=== PATIENT | male | born 1950 | race African-American/Black ===

== ENCOUNTER 2016-09-12 18:55 | Emergency (ER) | payer OTHER ==
[~2016-09-12] VITALS: Ht 157.5 cm; Wt 50.0 kg
[2016-09-12 19:47] VITALS: BP 156/101
[2016-09-12 19:51] LABS: HEMATOCRIT 40.3 % (41-53); HEMOGLOBIN 12.8 g/dL (13.5-17.5); MEAN CORPUSCULAR HEMOGLOBIN 28.8 pg (26.0-34.0); MEAN CORPUSCULAR HGB CONC 31.7 G/dL (31.0-37.0); MEAN CORPUSCULAR VOLUME 91 fL (80-100); PLATELET COUNT (AUTO) 184 K/uL (150-450); RED BLOOD CELL COUNT(AUTO) 4.43 MIL/uL (4.50-5.90); RED CELL DISTRIBUTION WIDTH 18.6 % (11.5-14.5); WHITE BLOOD COUNT (AUTO) 5.4 K/uL (4.5-11.0)
[2016-09-12] MEDS ORDERED: PERTUSS(ACELL),DIPH,TET VAC/PF 0.5 ML VIAL IM ONE (20:00)
[2016-09-12] MEDS ORDERED: LIDOCAINE HCL BUFFERED 1% 20 ML VIAL INJ ONE (20:00)
[2016-09-12] MEDS ORDERED: BACITRACIN 0.9 GM PACKET OINTMENT TP ONE (20:00)
[2016-09-12 20:04] LABS: ANION GAP 12 mmol/L (8-16); CALCIUM, TOTAL 8.3 mg/dL (8.8-10.5); CARBON DIOXIDE 28 mmol/L (22-29); CHLORIDE 103 mmol/L (98-107); CREATININE 0.87 mg/dL (0.60-1.30); GLOMERULAR FILTR. RATE CALC > 60 mL/min (>60); SODIUM SERUM 143 mmol/L (136-145); UREA NITROGEN, BLOOD 7 mg/dL (7-18)
[2016-09-12 20:10] LABS: ALANINE AMINOTRANSFERASE 99 U/L (12-78); ALBUMIN 3.9 g/dL (3.4-5.0); ASPARTATE AMINOTRANSFERASE 120 U/L (15-37); BILIRUBIN,TOTAL 0.4 mg/dL (0.1-1.0); TOTAL PROTEIN, SERUM 8.4 g/dL (6.4-8.2)
[2016-09-12 20:57] LABS: BAND NEUTROPHILS % (MANUAL) 5 % (1-5); LYMPHOCYTES % (MANUAL) 40 % (22-44); REACTIVE LYMPHOCYTES 1 % (0-0); TOTAL CELLS COUNTED 100
[2016-09-12 21:02] LABS: RBC MORPHOLOGY COMMENT ABNORMAL RBC MORPH
== END 2016-09-12 22:32 | disposition home or self-care (01) ==
LOC: EMS 18:57
DX: S01.81XA Laceration without foreign body of other part of head, initial encounter (principal); K70.30 Alcoholic cirrhosis of liver without ascites; F10.129 Alcohol abuse with intoxication, unspecified; J44.9 Chronic obstructive pulmonary disease, unspecified; F17.210 Nicotine dependence, cigarettes, uncomplicated; Y90.8 Blood alcohol level of 240 mg/100 ml or more; W01.198A Fall on same level from slipping, tripping and stumbling with subsequent striking against other object, initial encounter; Y93.89 Activity, other specified; Y92.89 Other specified places as the place of occurrence of the external cause; Y99.8 Other external cause status
CPT/HCPCS: 12013; 36415; 70450; 70486; 80053; 85025; 90471; 90715; 99285; 99406; G0480; J3490

== ENCOUNTER 2017-07-18 16:31 | Emergency (ER) | payer MEDICARE, OTHER ==
[~2017-07-18] VITALS: Ht 167.6 cm; Wt 59.1 kg
[2017-07-18] MEDS ORDERED: ALBU8HFA IH (16:39)
[2017-07-18 18:41] VITALS: BP 129/71
== END 2017-07-18 18:45 | disposition home or self-care (01) ==
LOC: EMS 16:36
DX: R19.7 Diarrhea, unspecified (principal); R05 Cough; J44.9 Chronic obstructive pulmonary disease, unspecified; J45.909 Unspecified asthma, uncomplicated; F17.210 Nicotine dependence, cigarettes, uncomplicated; Z59.0 Homelessness
CPT/HCPCS: 99283

== ENCOUNTER 2018-04-13 16:48 | Emergency (ER) | payer MEDICARE, OTHER ==
[~2018-04-13] VITALS: Ht 162.6 cm; Wt 57.3 kg
[~2018-04-13 16:48] MED LIST: ALBU8HFA IH
[2018-04-13 19:06] VITALS: BP 123/88
== END 2018-04-13 20:30 | disposition home or self-care (01) ==
LOC: EMS 16:49
DX: J40 Bronchitis, not specified as acute or chronic (principal); R05 Cough; J45.909 Unspecified asthma, uncomplicated; J44.9 Chronic obstructive pulmonary disease, unspecified; F17.210 Nicotine dependence, cigarettes, uncomplicated; Z59.0 Homelessness
CPT/HCPCS: 99284; 99406

== ENCOUNTER 2020-09-17 11:10 | Inpatient (IN) | payer MEDICARE, OTHER ==
[~2020-09-17] VITALS: Ht 177.8 cm; Wt 52.2 kg
[2020-09-17] MEDS ORDERED: MAGNESIUM SULFATE 2 GM, MVI, ADULT NO.1 WITH VIT K 10 ML, THIAMINE 100 MG, FOLIC ACID 1... IV ONE ×5 (11:30)
[2020-09-17] MEDS ORDERED: ETOMIDATE 2 MG/ML 10 ML VIAL IVP ONE (11:30)
[2020-09-17] MEDS ORDERED: PROPOFOL 1000 MG/ISO-OSM 100 ML IV PRN (11:30)
[2020-09-17] MEDS ORDERED: NALOXONE HCL 1 MG/ML 2 ML SYG IVP ONE (11:30)
[2020-09-17] MEDS ORDERED: ROCURONIUM BROMIDE 10 MG/ML 5 ML VIAL IVP ONE (11:30)
[2020-09-17] MEDS ORDERED: MIDAZOLAM HCL 2 MG/2 ML VIAL IVP ONE (11:45)
[2020-09-17 12:16] LABS: BASOPHILS % (AUTO) 0.7 % (0.0-2.0); EOSINOPHILS % (AUTO) 0.2 % (1.0-6.0); HEMATOCRIT 42.8 % (41-53); HEMOGLOBIN 13.8 g/dL (13.5-17.5); LYMPHOCYTES # (AUTO) 2.9 K/uL (1.0-4.8); MEAN CORPUSCULAR HEMOGLOBIN 30.2 pg (26.0-34.0); MEAN CORPUSCULAR HGB CONC 32.3 G/dL (31.0-37.0); MEAN CORPUSCULAR VOLUME 94 fL (80-100); MONOCYTES # (AUTO) 0.5 K/uL (0.1-1.0); MONOCYTES % (AUTO) 3.5 % (2.0-9.0); NEUTROPHILS # (AUTO) 10.2 K/uL (1.8-7.7); NEUTROPHILS % (AUTO) 74.6 % (40.0-70.0); PLATELET COUNT (AUTO) 157 K/uL (150-450); RED BLOOD CELL COUNT(AUTO) 4.57 MIL/uL (4.50-5.90); RED CELL DISTRIBUTION WIDTH 16.3 % (11.5-14.5)
[2020-09-17 12:29] LABS: PROTHROMBIN TIME 10.4 SEC (9.4-11.6)
[2020-09-17 12:31] LABS: ANION GAP 27 mmol/L (8-16); CALCIUM, TOTAL 9.5 mg/dL (8.8-10.5); CARBON DIOXIDE 16 mmol/L (22-29); CHLORIDE 101 mmol/L (98-107); CREATININE 1.07 mg/dL (0.60-1.30); GLOMERULAR FILTR. RATE CALC > 60 mL/min (>60); GLUCOSE,RANDOM 156 mg/dL (70-110); POTASSIUM 3.8 mmol/L (3.5-5.1); SODIUM SERUM 144 mmol/L (136-145); UREA NITROGEN, BLOOD 11 mg/dL (7-18)
[2020-09-17 12:38] LABS: APPEARANCE,URINE CLEAR (CLEAR); BILIRUBIN,URINE NEGATIVE (NEGATIVE); GLUCOSE, URINE (UA) NEGATIVE (NEGATIVE); KETONES,URINE NEGATIVE (NEGATIVE); LEUKOCYTE ESTERASE ,URINE NEGATIVE (NEGATIVE); NITRATE,URINE NEGATIVE (NEGATIVE); OCCULT BLOOD,URINE LARGE (NEGATIVE); PROTEIN,URINE SEE CONFIRM (NEGATIVE); UROBILINOGEN,URINE 0.2 mg/dL (<=1.0)
[2020-09-17 12:41] LABS: AMMONIA 28 umol/L (11-32)
[2020-09-17 12:43] LABS: AMPHET/METH SCREEN,URINE NEGATIVE (NEGATIVE); BARBITURATE SCREEN, URINE NEGATIVE (NEGATIVE); BENZODIAZEPINES SCREEN,URINE NEGATIVE (NEGATIVE); CANNABINOID SCREEN,URINE NEGATIVE (NEGATIVE); COCAINE SCREEN,URINE NEGATIVE (NEGATIVE); METHADONE SCREEN, URINE NEGATIVE (NEGATIVE); OPIATE SCREEN,URINE NEGATIVE (NEGATIVE)
[2020-09-17 12:44] LABS: TROPONIN I < 0.02 ng/mL (0.00-0.05)
[2020-09-17 12:45] LABS: LACTIC ACID 13.5 mmol/L (0.4-2.0)
[2020-09-17 12:47] LABS: PHENCYCLIDINE SCREEN,URINE POSITIVE (NEGATIVE)
[2020-09-17 12:56] LABS: ALANINE AMINOTRANSFERASE 47 U/L (12-78); ALBUMIN 4.6 g/dL (3.4-5.0); ALKALINE PHOSPHATASE 80 U/L (46-116); ASPARTATE AMINOTRANSFERASE 53 U/L (15-37); BILIRUBIN,TOTAL 0.3 mg/dL (0.1-1.0); LIPASE 102 U/L (73-393)
[2020-09-17 13:00] LABS: CREATINE KINASE, TOTAL ONLY 1274 U/L (39-308)
[2020-09-17 13:00] LABS: SULFOSALICYLIC ACID,URINE 3+ (Negative)
[2020-09-17 13:01] LABS: BACTERIA,URINE None Seen /HPF (None Seen); WBC,URINE None Seen /HPF (0-5)
[2020-09-17 13:02] LABS: AMORPHOUS SEDIMENT,UR Moderate /LPF (None Seen); HYALINE CASTS, URINE 0-2 /LPF (None Seen)
[2020-09-17 13:04] LABS: ABG A-A DIFF O2 190.1 mmHg (10-20.0); ABG BASE EXCESS -3.1 mmol/L (-2.0-3.0); ABG CARBOXYHEMOGLOBIN 2.2 % (0.0-1.5); ABG HCO3 21.5 mmol/L (22.0-26.0); ABG METHEMOGLOBIN 0.4 % (0.0-1.5); ABG OXYGEN CONTENT 21.2 mL/dL (15.0-23.0); ABG OXYGEN SATURATION 99.7 % (95.0-98.0); ABG OXYHEMOGLOBIN 97.1 % (94.0-100.0); ABG PCO2 51 mmHg (35-45); ABG PH 7.282 (7.35-7.450); ABG TOTAL HEMOGLOBIN 14.6 G/dL (12.0-18.0); PO2, ARTERIAL BG 471.8 mmHg (79.0-87.0); SOURCE, BLOOD GAS ARTERIAL; TEMPERATURE, FAHRENHEIT, BG 98.6 FAHREN (96.0-98.6)
[2020-09-17 13:04] LABS: B-TYPE NATRIURETIC PEPTIDE 14 pg/mL (0-100)
[2020-09-17 13:07] LABS: O2 DEVICE,BLOOD GAS VENTILATOR (ROOM AIR); SITE, BLOOD GAS LFT RADIAL; VT, ABG 450 ml
[2020-09-17 13:08] LABS: PEEP,BG 5 cm H2O
[2020-09-17 13:14] LABS: ACETAMINOPHEN < 2 mcg/mL (10-30)
[2020-09-17 13:21] LABS: SALICYLATE 4.8 mg/dL (2.8-20.0)
[2020-09-17] MEDS ORDERED: ONDANSETRON HCL 4 MG/2 ML VIAL IVP PRN (13:30)
[2020-09-17] MEDS ORDERED: 0.9% SODIUM CHLORIDE 10 ML SYRINGE IVP PRN (13:30)
[2020-09-17 13:52] LABS: COVID AG,FIA SOURCE NASOPHARYNGEAL
[2020-09-17] MEDS ORDERED: FentaNYL CIT 1000MCG/D5%-WATER 100 ML IV PRN (14:00)
[2020-09-17] MEDS ORDERED: SODIUM CHLORIDE 0.9% 1,000 ML IV ONE (15:30)
[2020-09-17 16:00] VITALS: BP 115/84
[2020-09-17 18:00] VITALS: BP 105/78
[2020-09-17 20:00] VITALS: BP 90/66
[2020-09-17] MEDS: FentaNYL CIT 1000MCG/D5%-WATER 100 ML IV PRN (22:01)
[2020-09-17] MEDS: PROPOFOL 1000 MG/ISO-OSM 100 ML IV PRN (22:01)
[2020-09-17] MEDS: MIDAZOLAM HCL 100 MG in SODIUM CHLORIDE 0.9% 180 ML IV PRN (22:02)
[2020-09-18] VITALS: BP 109/39
[2020-09-18] MEDS ORDERED: SODIUM CHLORIDE 0.9% 250 ML IV ONE (01:06)
[2020-09-18 04:00] VITALS: BP 90/64
[2020-09-18 08:00] VITALS: BP 75/54
[2020-09-18] MEDS ORDERED: RINGERS SOLUTION,LACTATED 1,000 ML IV ONE ×2 (08:45→13:15)
[2020-09-18] MEDS ORDERED: NOREPINEPHRINE 4 MG/D5%-WATER 250 ML IV PRN (08:45)
[2020-09-18] MEDS: HEPARIN SODIUM,PORCINE 5,000 UNITS/ML VIAL SQ SCH ×3 (08:48→23:14)
[2020-09-18] MEDS: RINGERS SOLUTION,LACTATED 1,000 ML IV SCH (08:49)
[2020-09-18] MEDS: DOCUSATE SODIUM 100 MG/10 ML LIQUID UDCUP PO SCH ×2 (09:33→19:52)
[2020-09-18 10:38] LABS: BASOPHILS % (AUTO) 0.9 % (0.0-2.0); EOSINOPHILS % (AUTO) 0.5 % (1.0-6.0); HEMATOCRIT 37.6 % (41-53); HEMOGLOBIN 11.7 g/dL (13.5-17.5); LYMPHOCYTES # (AUTO) 1.5 K/uL (1.0-4.8); LYMPHOCYTES % (AUTO) 13.4 % (22.0-44.0); MEAN CORPUSCULAR HEMOGLOBIN 29.8 pg (26.0-34.0); MEAN CORPUSCULAR HGB CONC 31.1 G/dL (31.0-37.0); MEAN CORPUSCULAR VOLUME 96 fL (80-100); MONOCYTES # (AUTO) 0.6 K/uL (0.1-1.0); MONOCYTES % (AUTO) 5.5 % (2.0-9.0); NEUTROPHILS # (AUTO) 8.9 K/uL (1.8-7.7); NEUTROPHILS % (AUTO) 79.7 % (40.0-70.0); PLATELET COUNT (AUTO) 117 K/uL (150-450); RED BLOOD CELL COUNT(AUTO) 3.93 MIL/uL (4.50-5.90); RED CELL DISTRIBUTION WIDTH 16.6 % (11.5-14.5)
[2020-09-18 10:48] LABS: ANION GAP 11 mmol/L (8-16); CALCIUM, TOTAL 8.4 mg/dL (8.8-10.5); CARBON DIOXIDE 25 mmol/L (22-29); CHLORIDE 110 mmol/L (98-107); GLOMERULAR FILTR. RATE CALC > 60 mL/min (>60); GLUCOSE,RANDOM 77 mg/dL (70-110); PHOSPHORUS 3.7 mg/dL (2.5-4.9); POTASSIUM 4.1 mmol/L (3.5-5.1); SODIUM SERUM 146 mmol/L (136-145); UREA NITROGEN, BLOOD 21 mg/dL (7-18)
[2020-09-18 12:00] VITALS: BP 81/60
[2020-09-18] MEDS: PROPOFOL 1000 MG/ISO-OSM 100 ML IV PRN ×2 (12:00→21:39)
[2020-09-18] MEDS: FentaNYL CIT 1000MCG/D5%-WATER 100 ML IV PRN (14:04)
[2020-09-18 14:27] LABS: CREATINE KINASE, TOTAL ONLY 9632 U/L (39-308)
[2020-09-18] MEDS: 1: MAGNESIUM SULFATE 2 GM, MVI, ADULT NO.1 WITH VIT K 10 ML, THIAMINE 100 MG, FOLIC ACID IV SCH ×10 (15:13→22:39)
[2020-09-18 16:00] VITALS: BP 110/88
[2020-09-18 20:00] VITALS: BP 82/60
[2020-09-18] MEDS ORDERED: SODIUM CHLORIDE 0.9% 1,000 ML ONE (21:30)
[2020-09-19] VITALS: BP 103/77
[2020-09-19] MEDS: FentaNYL CIT 1000MCG/D5%-WATER 100 ML IV PRN ×2 (02:40→18:18)
[2020-09-19] MEDS: MIDAZOLAM HCL 100 MG in SODIUM CHLORIDE 0.9% 180 ML IV PRN (02:40)
[2020-09-19 04:00] VITALS: BP 111/69
[2020-09-19] MEDS: RINGERS SOLUTION,LACTATED 1,000 ML IV SCH (04:00)
[2020-09-19] MEDS: 1: MAGNESIUM SULFATE 2 GM, MVI, ADULT NO.1 WITH VIT K 10 ML, THIAMINE 100 MG, FOLIC ACID IV SCH ×15 (07:47→23:16)
[2020-09-19] MEDS: HEPARIN SODIUM,PORCINE 5,000 UNITS/ML VIAL SQ SCH ×2 (07:48→16:04)
[2020-09-19] MEDS: DOCUSATE SODIUM 100 MG/10 ML LIQUID UDCUP PO SCH ×2 (07:48→20:19)
[2020-09-19] MEDS: PROPOFOL 1000 MG/ISO-OSM 100 ML IV PRN ×2 (07:48→18:18)
[2020-09-19 08:00] VITALS: BP 116/77
[2020-09-19 08:31] LABS: BASOPHILS % (AUTO) 0.7 % (0.0-2.0); EOSINOPHILS % (AUTO) 1.6 % (1.0-6.0); HEMOGLOBIN 10.6 g/dL (13.5-17.5); LYMPHOCYTES # (AUTO) 0.9 K/uL (1.0-4.8); LYMPHOCYTES % (AUTO) 10.8 % (22.0-44.0); MEAN CORPUSCULAR HEMOGLOBIN 30.1 pg (26.0-34.0); MEAN CORPUSCULAR VOLUME 94 fL (80-100); MONOCYTES # (AUTO) 0.8 K/uL (0.1-1.0); MONOCYTES % (AUTO) 9.4 % (2.0-9.0); NEUTROPHILS # (AUTO) 6.7 K/uL (1.8-7.7); NEUTROPHILS % (AUTO) 77.5 % (40.0-70.0); PLATELET COUNT (AUTO) 105 K/uL (150-450); RED CELL DISTRIBUTION WIDTH 16.2 % (11.5-14.5)
[2020-09-19 09:12] LABS: ALANINE AMINOTRANSFERASE 44 U/L (12-78); ALBUMIN 2.7 g/dL (3.4-5.0); ALKALINE PHOSPHATASE 40 U/L (46-116); ANION GAP 9 mmol/L (8-16); ASPARTATE AMINOTRANSFERASE 148 U/L (15-37); BILIRUBIN,TOTAL 0.3 mg/dL (0.1-1.0); CALCIUM, TOTAL 7.6 mg/dL (8.8-10.5); CARBON DIOXIDE 24 mmol/L (22-29); CHLORIDE 111 mmol/L (98-107); GLOMERULAR FILTR. RATE CALC > 60 mL/min (>60); GLUCOSE,RANDOM 66 mg/dL (70-110); POTASSIUM 3.7 mmol/L (3.5-5.1); SODIUM SERUM 144 mmol/L (136-145); TOTAL PROTEIN, SERUM 6.1 g/dL (6.4-8.2); UREA NITROGEN, BLOOD 16 mg/dL (7-18)
[2020-09-19 09:13] LABS: CREATINE KINASE, TOTAL ONLY 6528 U/L (39-308)
[2020-09-19 12:00] VITALS: BP 111/69
[2020-09-19 16:00] VITALS: BP 99/66
[2020-09-19] MEDS ORDERED: DEXMEDETOMIDINE HCL 200 MCG in SODIUM CHLORIDE 0.9% 48 ML IV PRN (17:15)
[2020-09-19 20:00] VITALS: BP 139/87
[2020-09-20] VITALS: BP 119/85
[2020-09-20] MEDS: HEPARIN SODIUM,PORCINE 5,000 UNITS/ML VIAL SQ SCH ×4 (02:01→23:51)
[2020-09-20 04:00] VITALS: BP 141/91
[2020-09-20 05:53] LABS: BASOPHILS % (AUTO) 1.4 % (0.0-2.0); EOSINOPHILS % (AUTO) 2.6 % (1.0-6.0); HEMATOCRIT 36.4 % (41-53); HEMOGLOBIN 11.4 g/dL (13.5-17.5); LYMPHOCYTES # (AUTO) 0.9 K/uL (1.0-4.8); LYMPHOCYTES % (AUTO) 13.6 % (22.0-44.0); MEAN CORPUSCULAR HEMOGLOBIN 29.9 pg (26.0-34.0); MEAN CORPUSCULAR HGB CONC 31.4 G/dL (31.0-37.0); MEAN CORPUSCULAR VOLUME 95 fL (80-100); MONOCYTES # (AUTO) 0.6 K/uL (0.1-1.0); MONOCYTES % (AUTO) 8.8 % (2.0-9.0); NEUTROPHILS # (AUTO) 5.2 K/uL (1.8-7.7); NEUTROPHILS % (AUTO) 73.6 % (40.0-70.0); PLATELET COUNT (AUTO) 114 K/uL (150-450); RED BLOOD CELL COUNT(AUTO) 3.83 MIL/uL (4.50-5.90); RED CELL DISTRIBUTION WIDTH 16.1 % (11.5-14.5)
[2020-09-20 06:13] LABS: ALANINE AMINOTRANSFERASE 48 U/L (12-78); ALBUMIN 2.6 g/dL (3.4-5.0); ALKALINE PHOSPHATASE 40 U/L (46-116); ANION GAP 14 mmol/L (8-16); ASPARTATE AMINOTRANSFERASE 158 U/L (15-37); BILIRUBIN,TOTAL 0.5 mg/dL (0.1-1.0); CARBON DIOXIDE 18 mmol/L (22-29); CHLORIDE 111 mmol/L (98-107); CREATININE 0.88 mg/dL (0.60-1.30); GLOMERULAR FILTR. RATE CALC > 60 mL/min (>60); GLUCOSE,RANDOM 65 mg/dL (70-110); POTASSIUM 3.9 mmol/L (3.5-5.1); SODIUM SERUM 143 mmol/L (136-145); TOTAL PROTEIN, SERUM 6.3 g/dL (6.4-8.2); UREA NITROGEN, BLOOD 14 mg/dL (7-18)
[2020-09-20 06:22] LABS: CALCIUM, TOTAL 7.8 mg/dL (8.8-10.5)
[2020-09-20] MEDS ORDERED: SODIUM CHLORIDE 0.9% 1,000 ML ONE (07:59)
[2020-09-20 08:00] VITALS: BP 108/78
[2020-09-20] MEDS: 1: MAGNESIUM SULFATE 2 GM, MVI, ADULT NO.1 WITH VIT K 10 ML, THIAMINE 100 MG, FOLIC ACID IV SCH ×15 (08:11→22:55)
[2020-09-20] MEDS: DOCUSATE SODIUM 100 MG/10 ML LIQUID UDCUP PO SCH ×2 (10:24→22:54)
[2020-09-20] MEDS: FentaNYL CIT 1000MCG/D5%-WATER 100 ML IV PRN (10:26)
[2020-09-20] MEDS: PROPOFOL 1000 MG/ISO-OSM 100 ML IV PRN ×3 (10:26→23:52)
[2020-09-20] MEDS: MIDAZOLAM HCL 100 MG in SODIUM CHLORIDE 0.9% 180 ML IV PRN (11:17)
[2020-09-20 12:00] VITALS: BP 131/74
[2020-09-20 16:00] VITALS: BP 103/74
[2020-09-20 20:00] VITALS: BP 159/87
[2020-09-20] MEDS: RINGERS SOLUTION,LACTATED 1,000 ML IV SCH ×2 (20:52)
[2020-09-21] VITALS: BP 143/94
[2020-09-21 04:00] VITALS: BP 117/79
[2020-09-21] MEDS: FentaNYL CIT 1000MCG/D5%-WATER 100 ML IV PRN (04:15)
[2020-09-21] MEDS: PROPOFOL 1000 MG/ISO-OSM 100 ML IV PRN ×3 (05:26→15:10)
[2020-09-21 06:26] LABS: HEMATOCRIT 35.4 % (41-53); MEAN CORPUSCULAR HEMOGLOBIN 29.8 pg (26.0-34.0); MEAN CORPUSCULAR HGB CONC 31.2 G/dL (31.0-37.0); MEAN CORPUSCULAR VOLUME 96 fL (80-100); PLATELET COUNT (AUTO) 105 K/uL (150-450); RED BLOOD CELL COUNT(AUTO) 3.71 MIL/uL (4.50-5.90); RED CELL DISTRIBUTION WIDTH 16.3 % (11.5-14.5)
[2020-09-21 06:42] LABS: BAND NEUTROPHILS % (MANUAL) 0 % (0-5)
[2020-09-21 06:55] LABS: EOSINOPHILS % (MANUAL) 2 % (1-6); LYMPHOCYTES % (MANUAL) 15 % (22-44); MONOCYTES % (MANUAL) 17 % (2-9); SEGMENTED NEUTROPHILS % 66 % (40-70)
[2020-09-21] MEDS: 1: MAGNESIUM SULFATE 2 GM, MVI, ADULT NO.1 WITH VIT K 10 ML, THIAMINE 100 MG, FOLIC ACID IV SCH ×15 (07:24→23:40)
[2020-09-21 08:00] VITALS: BP 178/109
[2020-09-21 08:01] LABS: ALANINE AMINOTRANSFERASE 44 U/L (12-78); ALBUMIN 2.3 g/dL (3.4-5.0); ALKALINE PHOSPHATASE 37 U/L (46-116); ANION GAP 13 mmol/L (8-16); ASPARTATE AMINOTRANSFERASE 109 U/L (15-37); BILIRUBIN,TOTAL 0.2 mg/dL (0.1-1.0); CALCIUM, TOTAL 7.9 mg/dL (8.8-10.5); CARBON DIOXIDE 20 mmol/L (22-29); CHLORIDE 112 mmol/L (98-107); CREATININE 0.74 mg/dL (0.60-1.30); GLOMERULAR FILTR. RATE CALC > 60 mL/min (>60); GLUCOSE,RANDOM 82 mg/dL (70-110); POTASSIUM 3.7 mmol/L (3.5-5.1); SODIUM SERUM 145 mmol/L (136-145); THYROID STIMULATING HORMONE 0.52 uIU/mL (0.36-3.74); UREA NITROGEN, BLOOD 9 mg/dL (7-18)
[2020-09-21] MEDS: DOCUSATE SODIUM 100 MG/10 ML LIQUID UDCUP PO SCH ×2 (09:24→22:50)
[2020-09-21] MEDS: HEPARIN SODIUM,PORCINE 5,000 UNITS/ML VIAL SQ SCH ×3 (09:24→23:37)
[2020-09-21 12:00] VITALS: BP 153/65
[2020-09-21] MEDS: RINGERS SOLUTION,LACTATED 1,000 ML IV SCH (15:02)
[2020-09-21] MEDS ORDERED: LORazepam 2 MG/ML VIAL IM PRN (15:15)
[2020-09-21] MEDS: METOCLOPRAMIDE HCL 5 MG/ML 2 ML VIAL IVP SCH ×2 (15:27→23:37)
[2020-09-21 16:00] VITALS: BP 145/88
[2020-09-21] MEDS: AmLODIPine BESYLATE 10 MG TABLET PO SCH (17:00)
[2020-09-21 20:00] VITALS: BP 112/71
[2020-09-21] MEDS: HydrALAZINE HCL 20 MG/ML VIAL IVP PRN (21:25)
[2020-09-22] VITALS: BP 137/89
[2020-09-22] MEDS: FentaNYL CIT 1000MCG/D5%-WATER 100 ML IV PRN (02:31)
[2020-09-22] MEDS: MIDAZOLAM HCL 100 MG in SODIUM CHLORIDE 0.9% 180 ML IV PRN (02:55)
[2020-09-22 04:00] VITALS: BP 157/85
[2020-09-22] MEDS: PROPOFOL 1000 MG/ISO-OSM 100 ML IV PRN ×3 (04:25→16:27)
[2020-09-22 05:35] LABS: BASOPHILS % (AUTO) 0.9 % (0.0-2.0); EOSINOPHILS % (AUTO) 0.9 % (1.0-6.0); HEMATOCRIT 35.1 % (41-53); HEMOGLOBIN 11.3 g/dL (13.5-17.5); LYMPHOCYTES # (AUTO) 0.9 K/uL (1.0-4.8); LYMPHOCYTES % (AUTO) 11.7 % (22.0-44.0); MEAN CORPUSCULAR HEMOGLOBIN 29.6 pg (26.0-34.0); MEAN CORPUSCULAR HGB CONC 32.2 G/dL (31.0-37.0); MEAN CORPUSCULAR VOLUME 92 fL (80-100); MONOCYTES # (AUTO) 0.9 K/uL (0.1-1.0); MONOCYTES % (AUTO) 10.6 % (2.0-9.0); NEUTROPHILS # (AUTO) 6.1 K/uL (1.8-7.7); NEUTROPHILS % (AUTO) 75.9 % (40.0-70.0); PLATELET COUNT (AUTO) 142 K/uL (150-450); RED BLOOD CELL COUNT(AUTO) 3.82 MIL/uL (4.50-5.90); RED CELL DISTRIBUTION WIDTH 15.8 % (11.5-14.5)
[2020-09-22 05:46] LABS: ANION GAP 14 mmol/L (8-16); CALCIUM, TOTAL 8.7 mg/dL (8.8-10.5); CARBON DIOXIDE 20 mmol/L (22-29); CHLORIDE 109 mmol/L (98-107); CREATININE 0.68 mg/dL (0.60-1.30); GLOMERULAR FILTR. RATE CALC > 60 mL/min (>60); GLUCOSE,RANDOM 81 mg/dL (70-110); POTASSIUM 3.1 mmol/L (3.5-5.1); SODIUM SERUM 143 mmol/L (136-145); UREA NITROGEN, BLOOD 4 mg/dL (7-18)
[2020-09-22] MEDS ORDERED: SODIUM CHLORIDE 0.9% 1,000 ML ONE ×2 (07:35→23:35)
[2020-09-22] MEDS: 1: MAGNESIUM SULFATE 2 GM, MVI, ADULT NO.1 WITH VIT K 10 ML, THIAMINE 100 MG, FOLIC ACID IV SCH ×15 (07:40→23:36)
[2020-09-22 08:00] VITALS: BP 143/95
[2020-09-22] MEDS: DOCUSATE SODIUM 100 MG/10 ML LIQUID UDCUP PO SCH ×2 (08:40→21:25)
[2020-09-22] MEDS: METOCLOPRAMIDE HCL 5 MG/ML 2 ML VIAL IVP SCH ×2 (08:40→15:25)
[2020-09-22] MEDS: HEPARIN SODIUM,PORCINE 5,000 UNITS/ML VIAL SQ SCH ×2 (08:40→15:25)
[2020-09-22] MEDS: HydrALAZINE HCL 20 MG/ML VIAL IVP PRN ×2 (08:53→18:33)
[2020-09-22] MEDS: AmLODIPine BESYLATE 10 MG TABLET PO SCH (09:27)
[2020-09-22 12:00] VITALS: BP 144/91
[2020-09-22] MEDS: POTASSIUM CHL 10 MEQ/WATER 50 ML IV PRN (12:06)
[2020-09-22] MEDS: RINGERS SOLUTION,LACTATED 1,000 ML IV SCH (12:06)
[2020-09-22] MEDS ORDERED: POTASSIUM CHL 10 MEQ/WATER 50 ML IV PRN (12:45)
[2020-09-22] MEDS: DEXMEDETOMIDINE HCL 400 MCG in SODIUM CHLORIDE 0.9% 96 ML IV PRN (12:55)
[2020-09-22 16:00] VITALS: BP 144/88
[2020-09-22 20:00] VITALS: BP 144/87
[2020-09-23] VITALS: BP 150/96
[2020-09-23] MEDS: METOCLOPRAMIDE HCL 5 MG/ML 2 ML VIAL IVP SCH ×4 (00:24→23:48)
[2020-09-23] MEDS: HEPARIN SODIUM,PORCINE 5,000 UNITS/ML VIAL SQ SCH ×4 (00:25→23:47)
[2020-09-23] MEDS: DEXMEDETOMIDINE HCL 400 MCG in SODIUM CHLORIDE 0.9% 96 ML IV PRN ×2 (02:35→12:14)
[2020-09-23 04:00] VITALS: BP 145/65
[2020-09-23] MEDS: PROPOFOL 1000 MG/ISO-OSM 100 ML IV PRN (04:04)
[2020-09-23 05:21] LABS: BASOPHILS % (AUTO) 0.9 % (0.0-2.0); EOSINOPHILS % (AUTO) 0.8 % (1.0-6.0); HEMOGLOBIN 11.6 g/dL (13.5-17.5); LYMPHOCYTES # (AUTO) 1.1 K/uL (1.0-4.8); LYMPHOCYTES % (AUTO) 15.8 % (22.0-44.0); MEAN CORPUSCULAR HEMOGLOBIN 29.5 pg (26.0-34.0); MEAN CORPUSCULAR HGB CONC 32.1 G/dL (31.0-37.0); MEAN CORPUSCULAR VOLUME 92 fL (80-100); MONOCYTES % (AUTO) 14.4 % (2.0-9.0); NEUTROPHILS # (AUTO) 4.9 K/uL (1.8-7.7); NEUTROPHILS % (AUTO) 68.1 % (40.0-70.0); PLATELET COUNT (AUTO) 146 K/uL (150-450); RED BLOOD CELL COUNT(AUTO) 3.92 MIL/uL (4.50-5.90); RED CELL DISTRIBUTION WIDTH 16.1 % (11.5-14.5)
[2020-09-23 05:35] LABS: ANION GAP 14 mmol/L (8-16); CALCIUM, TOTAL 8.5 mg/dL (8.8-10.5); CARBON DIOXIDE 20 mmol/L (22-29); CHLORIDE 108 mmol/L (98-107); CREATININE 0.64 mg/dL (0.60-1.30); GLOMERULAR FILTR. RATE CALC > 60 mL/min (>60); GLUCOSE,RANDOM 119 mg/dL (70-110); POTASSIUM 3.4 mmol/L (3.5-5.1); SODIUM SERUM 142 mmol/L (136-145); UREA NITROGEN, BLOOD 3 mg/dL (7-18)
[2020-09-23] MEDS ORDERED: SODIUM CHLORIDE 0.9% 1,000 ML ONE (07:37)
[2020-09-23] MEDS: 1: MAGNESIUM SULFATE 2 GM, MVI, ADULT NO.1 WITH VIT K 10 ML, THIAMINE 100 MG, FOLIC ACID IV SCH ×10 (07:40→15:38)
[2020-09-23] MEDS: POTASSIUM CHLORIDE 20 MEQ ER TABLET PO PRN (07:40)
[2020-09-23] MEDS: RINGERS SOLUTION,LACTATED 1,000 ML IV SCH (07:40)
[2020-09-23 08:00] VITALS: BP 194/123
[2020-09-23] MEDS: DOCUSATE SODIUM 100 MG/10 ML LIQUID UDCUP PO SCH ×2 (08:18→21:00)
[2020-09-23] MEDS: AmLODIPine BESYLATE 10 MG TABLET PO SCH (08:18)
[2020-09-23] MEDS: HydrALAZINE HCL 20 MG/ML VIAL IVP PRN ×2 (08:19→12:35)
[2020-09-23 12:00] VITALS: BP 151/79
[2020-09-23] MEDS: FentaNYL CIT 1000MCG/D5%-WATER 100 ML IV PRN (12:13)
[2020-09-23 13:59] LABS: ABG A-A DIFF O2 128.5 mmHg (10-20.0); ABG CARBOXYHEMOGLOBIN 0.5 % (0.0-1.5); ABG HCO3 19.9 mmol/L (22.0-26.0); ABG METHEMOGLOBIN 0.3 % (0.0-1.5); ABG OXYGEN CONTENT 16.7 mL/dL (15.0-23.0); ABG OXYGEN SATURATION 93.8 % (95.0-98.0); ABG PCO2 39 mmHg (35-45); ABG PH 7.325 (7.35-7.450); ABG TOTAL HEMOGLOBIN 12.7 G/dL (12.0-18.0); PO2, ARTERIAL BG 75.2 mmHg (79.0-87.0); SOURCE, BLOOD GAS ARTERIAL; TEMPERATURE, FAHRENHEIT, BG 98.7 FAHREN (96.0-98.6)
[2020-09-23 14:00] LABS: CPAP, BG 0 cm H2O; O2 DEVICE,BLOOD GAS VENTILATOR (ROOM AIR); PRESSURE SUPPORT, BG 8 cm H2O; SITE, BLOOD GAS RRA; VENT MODE, BG CPAP (ROOM AIR)
[2020-09-23 16:00] VITALS: BP 132/72
[2020-09-23] MEDS: ACETYLCYSTEINE 10% 100 MG/ML 4 ML NEB SOLUTION NEB SCH ×2 (16:23→19:26)
[2020-09-23] MEDS: ALBUTEROL SULFATE 2.5 MG/0.5 ML NEB SOLUTION NEB SCH ×2 (16:24→19:26)
[2020-09-23] MEDS: ACETAMINOPHEN 650 MG RECTAL SUPPOSITORY PR PRN ×2 (17:40→21:31)
[2020-09-23 17:45] LABS: GLUCOSE,POINT OF CARE 93 MG/DL (70-110)
[2020-09-23 18:29] LABS: APPEARANCE,URINE CLOUDY (CLEAR); BILIRUBIN,URINE NEGATIVE (NEGATIVE); GLUCOSE, URINE (UA) NEGATIVE (NEGATIVE); KETONES,URINE 40 mg/dL (NEGATIVE); LEUKOCYTE ESTERASE ,URINE LARGE (NEGATIVE); OCCULT BLOOD,URINE LARGE (NEGATIVE); PH,URINE 5.5 (5.0-8.0); PROTEIN,URINE NEGATIVE (NEGATIVE)
[2020-09-23 18:38] LABS: BACTERIA,URINE Many /HPF (None Seen); NITRATE,URINE POSITIVE (NEGATIVE); RBC,URINE 26-50 /HPF (0-2); SQUAMOUS EPITHELIAL CELL,UR Moderate /LPF (None Seen); WBC,URINE 51-100 /HPF (0-5)
[2020-09-23 20:00] VITALS: BP 139/82
[2020-09-23] MEDS: METOPROLOL TARTRATE 25 MG TABLET PO SCH (21:00)
[2020-09-24] VITALS: BP 163/98
[2020-09-24] MEDS: ALBUTEROL SULFATE 2.5 MG/0.5 ML NEB SOLUTION NEB SCH ×7 (00:25→23:35)
[2020-09-24] MEDS: ACETYLCYSTEINE 10% 100 MG/ML 4 ML NEB SOLUTION NEB SCH ×7 (00:25→23:35)
[2020-09-24] MEDS: HydrALAZINE HCL 20 MG/ML VIAL IVP PRN ×3 (01:24→21:16)
[2020-09-24] MEDS: 1: MAGNESIUM SULFATE 2 GM, MVI, ADULT NO.1 WITH VIT K 10 ML, THIAMINE 100 MG, FOLIC ACID IV SCH ×15 (03:56→16:54)
[2020-09-24 04:00] VITALS: BP 179/108
[2020-09-24] MEDS: ACETAMINOPHEN 650 MG RECTAL SUPPOSITORY PR PRN (04:58)
[2020-09-24 06:00] LABS: BASOPHILS % (AUTO) 0.1 % (0.0-2.0); EOSINOPHILS % (AUTO) 0 % (1.0-6.0); HEMATOCRIT 37.7 % (41-53); LYMPHOCYTES # (AUTO) 0.3 K/uL (1.0-4.8); LYMPHOCYTES % (AUTO) 2.6 % (22.0-44.0); MEAN CORPUSCULAR HEMOGLOBIN 29.2 pg (26.0-34.0); MEAN CORPUSCULAR HGB CONC 31.8 G/dL (31.0-37.0); MEAN CORPUSCULAR VOLUME 92 fL (80-100); MONOCYTES # (AUTO) 1.5 K/uL (0.1-1.0); MONOCYTES % (AUTO) 12.2 % (2.0-9.0); NEUTROPHILS # (AUTO) 10.7 K/uL (1.8-7.7); NEUTROPHILS % (AUTO) 85.1 % (40.0-70.0); PLATELET COUNT (AUTO) 171 K/uL (150-450); RED BLOOD CELL COUNT(AUTO) 4.11 MIL/uL (4.50-5.90); RED CELL DISTRIBUTION WIDTH 15.7 % (11.5-14.5)
[2020-09-24 06:10] LABS: ANION GAP 20 mmol/L (8-16); CALCIUM, TOTAL 9.2 mg/dL (8.8-10.5); CARBON DIOXIDE 19 mmol/L (22-29); CHLORIDE 104 mmol/L (98-107); CREATININE 0.88 mg/dL (0.60-1.30); GLOMERULAR FILTR. RATE CALC > 60 mL/min (>60); GLUCOSE,RANDOM 169 mg/dL (70-110); SODIUM SERUM 143 mmol/L (136-145); UREA NITROGEN, BLOOD 4 mg/dL (7-18)
[2020-09-24] MEDS ORDERED: 0.9% SODIUM CHLORIDE 5 ML NEB SOLUTION NEB ONE ×3 (07:40→15:25)
[2020-09-24 08:00] VITALS: BP 177/111
[2020-09-24] MEDS ORDERED: SODIUM CHLORIDE 0.9% 1,000 ML ONE (08:07)
[2020-09-24] MEDS: HEPARIN SODIUM,PORCINE 5,000 UNITS/ML VIAL SQ SCH ×3 (08:14→23:45)
[2020-09-24] MEDS: AmLODIPine BESYLATE 10 MG TABLET PO SCH (08:14)
[2020-09-24] MEDS: METOCLOPRAMIDE HCL 5 MG/ML 2 ML VIAL IVP SCH ×3 (08:15→23:45)
[2020-09-24] MEDS: POTASSIUM CHLORIDE 10% 40 MEQ/30 ML LIQUID UDCUP PO PRN (08:16)
[2020-09-24] MEDS: METOPROLOL TARTRATE 25 MG TABLET PO SCH ×2 (08:16→21:01)
[2020-09-24] MEDS: DOCUSATE SODIUM 100 MG/10 ML LIQUID UDCUP PO SCH ×2 (08:16→20:57)
[2020-09-24] MEDS: LORazepam 2 MG/ML VIAL IVP PRN ×3 (08:56→21:11)
[2020-09-24] MEDS: ACETAMINOPHEN 325 MG TABLET PO PRN ×2 (09:03→20:00)
[2020-09-24] MEDS ORDERED: PIPERACILLIN/TAZO 3.375 GM/D5W 50 ML IV SCH (11:00)
[2020-09-24 12:00] VITALS: BP 152/83
[2020-09-24 16:00] VITALS: BP 148/82
[2020-09-24] MEDS: POTASSIUM CHL 10 MEQ/WATER 50 ML IV PRN ×4 (17:00→23:46)
[2020-09-24] MEDS: PIPERACILLIN/TAZO 3.375 GM/D5W 50 ML IV SCH (19:29)
[2020-09-24 20:00] VITALS: BP 149/100
[2020-09-25] VITALS: BP 132/115
[2020-09-25] MEDS: POTASSIUM CHL 10 MEQ/WATER 50 ML IV PRN ×9 (00:48→17:22)
[2020-09-25] MEDS: LORazepam 2 MG/ML VIAL IVP PRN ×5 (00:49→20:49)
[2020-09-25] MEDS: PIPERACILLIN/TAZO 3.375 GM/D5W 50 ML IV SCH ×4 (01:49→19:33)
[2020-09-25] MEDS: ACETAMINOPHEN 325 MG TABLET PO PRN ×4 (01:52→20:49)
[2020-09-25] MEDS: ACETYLCYSTEINE 10% 100 MG/ML 4 ML NEB SOLUTION NEB SCH ×6 (03:29→23:22)
[2020-09-25] MEDS: ALBUTEROL SULFATE 2.5 MG/0.5 ML NEB SOLUTION NEB SCH ×6 (03:29→23:22)
[2020-09-25 04:00] VITALS: BP 136/75
[2020-09-25] MEDS: HEPARIN SODIUM,PORCINE 5,000 UNITS/ML VIAL SQ SCH ×2 (07:20→16:30)
[2020-09-25] MEDS: METOCLOPRAMIDE HCL 5 MG/ML 2 ML VIAL IVP SCH ×2 (07:21→16:30)
[2020-09-25] MEDS: AmLODIPine BESYLATE 10 MG TABLET PO SCH (07:57)
[2020-09-25] MEDS: DOCUSATE SODIUM 100 MG/10 ML LIQUID UDCUP PO SCH ×2 (07:57→20:48)
[2020-09-25] MEDS: METOPROLOL TARTRATE 25 MG TABLET PO SCH ×2 (07:57→20:48)
[2020-09-25 08:00] VITALS: BP 152/91
[2020-09-25 12:00] VITALS: BP 140/90
[2020-09-25] MEDS ORDERED: *CLINICAL-LEVOFLOXACIN IVPB DOSING CLINICAL ONE (13:15)
[2020-09-25] MEDS: LEVOFLOXACIN 750 MG/D5% WATER 150 ML IV SCH (15:29)
[2020-09-25] MEDS: SCOPOLAMINE HYDROBROMIDE 1 MG/72 HOUR PATCH TD SCH (15:30)
[2020-09-25 16:00] VITALS: BP 139/97
[2020-09-25] MEDS: 1: MAGNESIUM SULFATE 2 GM, MVI, ADULT NO.1 WITH VIT K 10 ML, THIAMINE 100 MG, FOLIC ACID IV SCH ×5 (17:28)
[2020-09-25] MEDS: NICOTINE 21 MG/24 HOUR PATCH TD SCH (18:36)
[2020-09-25] MEDS ORDERED: SODIUM CHLORIDE 0.9% 250 ML IV ONE (19:19)
[2020-09-25 20:00] VITALS: BP 143/88
[2020-09-26] VITALS: BP 127/89
[2020-09-26] MEDS: PIPERACILLIN/TAZO 3.375 GM/D5W 50 ML IV SCH ×4 (00:09→18:18)
[2020-09-26] MEDS: METOCLOPRAMIDE HCL 5 MG/ML 2 ML VIAL IVP SCH ×4 (00:09→23:54)
[2020-09-26] MEDS: POTASSIUM CHLORIDE 20 MEQ ER TABLET PO PRN (00:09)
[2020-09-26] MEDS: HEPARIN SODIUM,PORCINE 5,000 UNITS/ML VIAL SQ SCH ×4 (00:09→23:54)
[2020-09-26] MEDS: LORazepam 2 MG/ML VIAL IVP PRN ×3 (01:36→20:12)
[2020-09-26] MEDS: ACETAMINOPHEN 325 MG TABLET PO PRN (03:45)
[2020-09-26] MEDS: ACETYLCYSTEINE 10% 100 MG/ML 4 ML NEB SOLUTION NEB SCH ×6 (03:47→23:00)
[2020-09-26] MEDS: ALBUTEROL SULFATE 2.5 MG/0.5 ML NEB SOLUTION NEB SCH ×6 (03:47→23:00)
[2020-09-26 04:00] VITALS: BP 153/85
[2020-09-26 05:31] LABS: BASOPHILS % (AUTO) 0.5 % (0.0-2.0); EOSINOPHILS % (AUTO) 0 % (1.0-6.0); HEMATOCRIT 36.8 % (41-53); HEMOGLOBIN 11.9 g/dL (13.5-17.5); LYMPHOCYTES # (AUTO) 1.4 K/uL (1.0-4.8); LYMPHOCYTES % (AUTO) 11.9 % (22.0-44.0); MEAN CORPUSCULAR HEMOGLOBIN 29.1 pg (26.0-34.0); MEAN CORPUSCULAR HGB CONC 32.2 G/dL (31.0-37.0); MEAN CORPUSCULAR VOLUME 90 fL (80-100); MONOCYTES # (AUTO) 1.3 K/uL (0.1-1.0); MONOCYTES % (AUTO) 11.6 % (2.0-9.0); NEUTROPHILS # (AUTO) 8.7 K/uL (1.8-7.7); PLATELET COUNT (AUTO) 205 K/uL (150-450); RED BLOOD CELL COUNT(AUTO) 4.08 MIL/uL (4.50-5.90); RED CELL DISTRIBUTION WIDTH 15.8 % (11.5-14.5)
[2020-09-26 06:24] LABS: ANION GAP 11 mmol/L (8-16); CARBON DIOXIDE 27 mmol/L (22-29); CHLORIDE 102 mmol/L (98-107); CREATININE 0.86 mg/dL (0.60-1.30); GLOMERULAR FILTR. RATE CALC > 60 mL/min (>60); GLUCOSE,RANDOM 109 mg/dL (70-110); POTASSIUM 3.5 mmol/L (3.5-5.1); SODIUM SERUM 140 mmol/L (136-145); UREA NITROGEN, BLOOD 8 mg/dL (7-18)
[2020-09-26] MEDS ORDERED: 0.9% SODIUM CHLORIDE 5 ML NEB SOLUTION NEB ONE ×3 (07:55→20:04)
[2020-09-26 08:00] VITALS: BP 143/76
[2020-09-26] MEDS: DOCUSATE SODIUM 100 MG/10 ML LIQUID UDCUP PO SCH ×2 (08:44→20:00)
[2020-09-26] MEDS: METOPROLOL TARTRATE 25 MG TABLET PO SCH ×2 (08:44→20:12)
[2020-09-26] MEDS: AmLODIPine BESYLATE 10 MG TABLET PO SCH (08:44)
[2020-09-26] MEDS: NICOTINE 21 MG/24 HOUR PATCH TD SCH (08:45)
[2020-09-26] MEDS: 1: MAGNESIUM SULFATE 2 GM, MVI, ADULT NO.1 WITH VIT K 10 ML, THIAMINE 100 MG, FOLIC ACID IV SCH ×10 (08:45→21:38)
[2020-09-26] MEDS: POTASSIUM CHL 10 MEQ/WATER 50 ML IV PRN ×3 (09:28→17:01)
[2020-09-26 12:00] VITALS: BP 141/90
[2020-09-26] MEDS ORDERED: SODIUM CHLORIDE 0.9% 250 ML IV ONE (12:46)
[2020-09-26] MEDS: LEVOFLOXACIN 750 MG/D5% WATER 150 ML IV SCH (15:13)
[2020-09-26 15:18] VITALS: BP 141/95
[2020-09-26 20:10] VITALS: BP 137/96
[2020-09-26] MEDS: POTASSIUM CHLORIDE 10% 40 MEQ/30 ML LIQUID UDCUP PO PRN (23:55)
[2020-09-27] VITALS (7 sets, daily range): BP systolic 15–156; BP diastolic 80–99
[2020-09-27] MEDS: PIPERACILLIN/TAZO 3.375 GM/D5W 50 ML IV SCH ×4 (01:03→20:00)
[2020-09-27] MEDS: ACETYLCYSTEINE 10% 100 MG/ML 4 ML NEB SOLUTION NEB SCH ×6 (03:00→23:26)
[2020-09-27] MEDS: ALBUTEROL SULFATE 2.5 MG/0.5 ML NEB SOLUTION NEB SCH ×6 (03:00→23:26)
[2020-09-27] MEDS: LORazepam 2 MG/ML VIAL IVP PRN (04:24)
[2020-09-27 05:57] LABS: BASOPHILS % (AUTO) 0.3 % (0.0-2.0); EOSINOPHILS % (AUTO) 0 % (1.0-6.0); HEMATOCRIT 35.8 % (41-53); HEMOGLOBIN 11.8 g/dL (13.5-17.5); LYMPHOCYTES # (AUTO) 1.3 K/uL (1.0-4.8); LYMPHOCYTES % (AUTO) 13.5 % (22.0-44.0); MEAN CORPUSCULAR HEMOGLOBIN 29.8 pg (26.0-34.0); MEAN CORPUSCULAR VOLUME 90 fL (80-100); MONOCYTES % (AUTO) 9.9 % (2.0-9.0); NEUTROPHILS # (AUTO) 7.4 K/uL (1.8-7.7); NEUTROPHILS % (AUTO) 76.3 % (40.0-70.0); PLATELET COUNT (AUTO) 211 K/uL (150-450); RED BLOOD CELL COUNT(AUTO) 3.97 MIL/uL (4.50-5.90); RED CELL DISTRIBUTION WIDTH 15.8 % (11.5-14.5)
[2020-09-27 05:58] LABS: ANION GAP 13 mmol/L (8-16); CALCIUM, TOTAL 9.3 mg/dL (8.8-10.5); CARBON DIOXIDE 25 mmol/L (22-29); CHLORIDE 100 mmol/L (98-107); CREATININE 0.85 mg/dL (0.60-1.30); GLOMERULAR FILTR. RATE CALC > 60 mL/min (>60); GLUCOSE,RANDOM 95 mg/dL (70-110); POTASSIUM 3.6 mmol/L (3.5-5.1); SODIUM SERUM 138 mmol/L (136-145); UREA NITROGEN, BLOOD 8 mg/dL (7-18)
[2020-09-27] MEDS: METOPROLOL TARTRATE 25 MG TABLET PO SCH ×2 (08:59→20:01)
[2020-09-27] MEDS: AmLODIPine BESYLATE 10 MG TABLET PO SCH (08:59)
[2020-09-27] MEDS: DOCUSATE SODIUM 100 MG/10 ML LIQUID UDCUP PO SCH ×2 (09:00→20:01)
[2020-09-27] MEDS: HEPARIN SODIUM,PORCINE 5,000 UNITS/ML VIAL SQ SCH ×3 (09:01→23:30)
[2020-09-27] MEDS: METOCLOPRAMIDE HCL 5 MG/ML 2 ML VIAL IVP SCH ×3 (09:01→23:28)
[2020-09-27] MEDS: NICOTINE 21 MG/24 HOUR PATCH TD SCH (09:01)
[2020-09-27] MEDS ORDERED: SODIUM CHLORIDE 0.9% 1,000 ML ONE (12:29)
[2020-09-27] MEDS: 1: MAGNESIUM SULFATE 2 GM, MVI, ADULT NO.1 WITH VIT K 10 ML, THIAMINE 100 MG, FOLIC ACID IV SCH ×10 (12:32→23:30)
[2020-09-27] MEDS: LEVOFLOXACIN 750 MG/D5% WATER 150 ML IV SCH (14:19)
[2020-09-27] MEDS ORDERED: 0.9% SODIUM CHLORIDE 5 ML NEB SOLUTION NEB ONE (19:20)
[2020-09-28] MEDS: PIPERACILLIN/TAZO 3.375 GM/D5W 50 ML IV SCH ×2 (00:31→06:39)
[2020-09-28] MEDS: ALBUTEROL SULFATE 2.5 MG/0.5 ML NEB SOLUTION NEB SCH ×6 (02:55→23:00)
[2020-09-28] MEDS: ACETYLCYSTEINE 10% 100 MG/ML 4 ML NEB SOLUTION NEB SCH ×6 (02:55→23:00)
[2020-09-28 05:20] VITALS: BP 158/86
[2020-09-28 07:13] VITALS: BP 154/94
[2020-09-28 07:17] LABS: BASOPHILS % (AUTO) 0.9 % (0.0-2.0); EOSINOPHILS % (AUTO) 1.2 % (1.0-6.0); HEMATOCRIT 37.5 % (41-53); LYMPHOCYTES # (AUTO) 1.4 K/uL (1.0-4.8); LYMPHOCYTES % (AUTO) 15.9 % (22.0-44.0); MEAN CORPUSCULAR HEMOGLOBIN 29.3 pg (26.0-34.0); MEAN CORPUSCULAR HGB CONC 32.1 G/dL (31.0-37.0); MEAN CORPUSCULAR VOLUME 91 fL (80-100); MONOCYTES % (AUTO) 11.3 % (2.0-9.0); NEUTROPHILS # (AUTO) 6.1 K/uL (1.8-7.7); NEUTROPHILS % (AUTO) 70.7 % (40.0-70.0); PLATELET COUNT (AUTO) 221 K/uL (150-450); RED BLOOD CELL COUNT(AUTO) 4.11 MIL/uL (4.50-5.90); RED CELL DISTRIBUTION WIDTH 16.2 % (11.5-14.5)
[2020-09-28 07:31] LABS: ANION GAP 12 mmol/L (8-16); CALCIUM, TOTAL 9.3 mg/dL (8.8-10.5); CARBON DIOXIDE 25 mmol/L (22-29); CHLORIDE 101 mmol/L (98-107); CREATININE 0.71 mg/dL (0.60-1.30); GLOMERULAR FILTR. RATE CALC > 60 mL/min (>60); GLUCOSE,RANDOM 103 mg/dL (70-110); POTASSIUM 3.4 mmol/L (3.5-5.1); SODIUM SERUM 138 mmol/L (136-145); UREA NITROGEN, BLOOD 8 mg/dL (7-18)
[2020-09-28] MEDS: DOCUSATE SODIUM 100 MG/10 ML LIQUID UDCUP PO SCH ×2 (08:06→21:00)
[2020-09-28] MEDS: METOCLOPRAMIDE HCL 5 MG/ML 2 ML VIAL IVP SCH ×2 (08:07→16:00)
[2020-09-28] MEDS: AmLODIPine BESYLATE 10 MG TABLET PO SCH (08:07)
[2020-09-28] MEDS: HEPARIN SODIUM,PORCINE 5,000 UNITS/ML VIAL SQ SCH ×2 (08:07→16:00)
[2020-09-28] MEDS: METOPROLOL TARTRATE 25 MG TABLET PO SCH ×2 (08:07→21:05)
[2020-09-28] MEDS: SCOPOLAMINE HYDROBROMIDE 1 MG/72 HOUR PATCH TD SCH (09:00)
[2020-09-28] MEDS: NICOTINE 21 MG/24 HOUR PATCH TD SCH (09:34)
[2020-09-28] MEDS: POTASSIUM CHLORIDE 20 MEQ ER TABLET PO PRN (09:35)
[2020-09-28 11:15] VITALS: BP 127/83
[2020-09-28] MEDS ORDERED: *CLINICAL-LEVOFLOXACIN ORAL DOSING CLINICAL ONE (12:15)
[2020-09-28] MEDS: LEVOFLOXACIN 750 MG/D5% WATER 150 ML IV SCH (13:45)
[2020-09-28 15:40] VITALS: BP 132/82
[2020-09-28] MEDS: MetroNIDAZOLE 500 MG TABLET PO SCH ×2 (16:42→21:05)
[2020-09-28 19:24] VITALS: BP 130/82
[2020-09-28] MEDS ORDERED: 0.9% SODIUM CHLORIDE 5 ML NEB SOLUTION NEB ONE ×2 (20:11→23:00)
[2020-09-28 23:47] VITALS: BP 155/94
[2020-09-29] MEDS: HEPARIN SODIUM,PORCINE 5,000 UNITS/ML VIAL SQ SCH ×2 (00:11→08:00)
[2020-09-29] MEDS: METOCLOPRAMIDE HCL 5 MG/ML 2 ML VIAL IVP SCH ×2 (00:11→07:54)
[2020-09-29] MEDS ORDERED: 0.9% SODIUM CHLORIDE 5 ML NEB SOLUTION NEB ONE ×2 (03:20→11:35)
[2020-09-29] MEDS: ACETYLCYSTEINE 10% 100 MG/ML 4 ML NEB SOLUTION NEB SCH ×3 (03:25→11:00)
[2020-09-29] MEDS: ALBUTEROL SULFATE 2.5 MG/0.5 ML NEB SOLUTION NEB SCH ×3 (03:25→11:35)
[2020-09-29 04:00] VITALS: BP 143/95
[2020-09-29 06:05] LABS: ANION GAP 11 mmol/L (8-16); CALCIUM, TOTAL 9.3 mg/dL (8.8-10.5); CARBON DIOXIDE 25 mmol/L (22-29); CHLORIDE 101 mmol/L (98-107); CREATININE 0.74 mg/dL (0.60-1.30); GLOMERULAR FILTR. RATE CALC > 60 mL/min (>60); GLUCOSE,RANDOM 120 mg/dL (70-110); POTASSIUM 3.2 mmol/L (3.5-5.1); SODIUM SERUM 137 mmol/L (136-145); UREA NITROGEN, BLOOD 7 mg/dL (7-18)
[2020-09-29] MEDS: POTASSIUM CHLORIDE 20 MEQ ER TABLET PO PRN (06:25)
[2020-09-29 07:32] VITALS: BP 141/83
[2020-09-29] MEDS: AmLODIPine BESYLATE 10 MG TABLET PO SCH (07:53)
[2020-09-29] MEDS: METOPROLOL TARTRATE 25 MG TABLET PO SCH (07:53)
[2020-09-29] MEDS: NICOTINE 21 MG/24 HOUR PATCH TD SCH (07:54)
[2020-09-29] MEDS: MetroNIDAZOLE 500 MG TABLET PO SCH (07:54)
[2020-09-29] MEDS: DOCUSATE SODIUM 100 MG/10 ML LIQUID UDCUP PO SCH (09:00)
[2020-09-29] MEDS ORDERED: AMLO-258 PO ×2 (11:44→11:50)
[2020-09-29 11:45] VITALS: BP 117/74
[2020-09-29] MEDS ORDERED: LEVO750T68 PO (11:45)
[2020-09-29] MEDS ORDERED: METR500 PO (11:46)
[2020-09-29] MEDS ORDERED: METO25 PO (11:47)
== END 2020-09-29 13:00 | disposition home or self-care (01) | DRG 917 ==
LOC: EMS 11:32 → ICU 13:28 → 5S 09-26 12:00
PROVIDERS: ADMIT Hospitalist; ATTEND Hospitalist
PROC: 5A1955Z Respiratory Ventilation, Greater than 96 Consecutive Hours (ICD-10-PCS; principal; 2020-09-17)
PROC: 0BH17EZ Insertion of Endotracheal Airway into Trachea, Via Natural or Artificial Opening (ICD-10-PCS; 2020-09-17)
DX: T40.991A Poisoning by other psychodysleptics [hallucinogens], accidental (unintentional), initial encounter (principal); A41.9 Sepsis, unspecified organism; J96.00 Acute respiratory failure, unspecified whether with hypoxia or hypercapnia; J69.0 Pneumonitis due to inhalation of food and vomit; G92 Toxic encephalopathy; E87.2 Acidosis; M62.82 Rhabdomyolysis; J90 Pleural effusion, not elsewhere classified; N39.0 Urinary tract infection, site not specified; F10.129 Alcohol abuse with intoxication, unspecified; E83.42 Hypomagnesemia; E87.6 Hypokalemia; Z20.822 Contact with and (suspected) exposure to COVID-19; Z59.0 Homelessness; F19.10 Other psychoactive substance abuse, uncomplicated; Y92.89 Other specified places as the place of occurrence of the external cause
CPT/HCPCS: 36600; 51702; 70450; 71250; 72192; 74150; 82805; 83605; 83735; 84100; 84132; 84443; 87040; 87070; 87081; 87086; 87205; 87426; 92526; 92610; 93005; 93306; 94002; 94003; 94640; 97116; 97161; 97530; 99291; 99292; A9575; G0378; G0480; G0481; J0360; J1644; J1956; J2060; J2250; J2543; J2704; J2765; J3411; J3475; J3480; J3490; J7030; J7050; J7120; 36415-L1; 36415-TC; 71045-TC; J7613

== ENCOUNTER 2021-04-01 13:13 | Emergency (ER) | payer MEDICARE, OTHER ==
[~2021-04-01] VITALS: Ht 172.7 cm; Wt 70.0 kg
[~2021-04-01 13:13] MED LIST changes: +AMLO-258 PO; +LEVO750T68 PO; +METO25 PO; +METR500 PO
[2021-04-01 14:39] LABS: BASOPHILS % (AUTO) 2.1 % (0.0-2.0); EOSINOPHILS % (AUTO) 0.7 % (1.0-6.0); HEMATOCRIT 35.2 % (41-53); HEMOGLOBIN 11.4 g/dL (13.5-17.5); LYMPHOCYTES # (AUTO) 1.5 K/uL (1.0-4.8); LYMPHOCYTES % (AUTO) 43.9 % (22.0-44.0); MEAN CORPUSCULAR HEMOGLOBIN 31.4 pg (26.0-34.0); MEAN CORPUSCULAR HGB CONC 32.3 G/dL (31.0-37.0); MEAN CORPUSCULAR VOLUME 97 fL (80-100); MONOCYTES # (AUTO) 0.3 K/uL (0.1-1.0); MONOCYTES % (AUTO) 9.2 % (2.0-9.0); NEUTROPHILS # (AUTO) 1.5 K/uL (1.8-7.7); NEUTROPHILS % (AUTO) 44.1 % (40.0-70.0); PLATELET COUNT (AUTO) 173 K/uL (150-450); RED BLOOD CELL COUNT(AUTO) 3.62 MIL/uL (4.50-5.90); RED CELL DISTRIBUTION WIDTH 18.4 % (11.5-14.5)
[2021-04-01] MEDS ORDERED: MethylPREDNISolone SOD SUCC 125 MG/2 ML VIAL IVP ONE (14:45)
[2021-04-01] MEDS ORDERED: ALBUTEROL SULFATE 5 MG/ML 20 ML NEB SOLN [BULK] NEB ONE (14:45)
[2021-04-01] MEDS ORDERED: IPRATROPIUM BROMIDE 0.5 MG/2.5 ML NEB SOLUTION NEB ONE (14:45)
[2021-04-01] MEDS ORDERED: AZITHROMYCIN 500 MG/NS 250 ML IV ONE (14:45)
[2021-04-01 14:50] LABS: ANION GAP 9 mmol/L (8-16); CALCIUM, TOTAL 8.3 mg/dL (8.8-10.5); CARBON DIOXIDE 25 mmol/L (22-29); CHLORIDE 100 mmol/L (98-107); CREATININE 1.02 mg/dL (0.60-1.30); GLOMERULAR FILTR. RATE CALC > 60 mL/min (>60); GLUCOSE,RANDOM 89 mg/dL (70-110); POTASSIUM 4.2 mmol/L (3.5-5.1); SODIUM SERUM 134 mmol/L (136-145); UREA NITROGEN, BLOOD 13 mg/dL (7-18)
[2021-04-01 14:52] LABS: PROTHROMBIN TIME 10.7 SEC (9.4-11.6)
[2021-04-01 14:54] LABS: ALANINE AMINOTRANSFERASE 76 U/L (12-78); ALKALINE PHOSPHATASE 84 U/L (46-116); ASPARTATE AMINOTRANSFERASE 104 U/L (15-37); B-TYPE NATRIURETIC PEPTIDE 7 pg/mL (0-100); BILIRUBIN,TOTAL 0.3 mg/dL (0.1-1.0); TOTAL PROTEIN, SERUM 8.2 g/dL (6.4-8.2)
[2021-04-01 15:06] LABS: COVID AG,FIA SOURCE NASAL SWAB
[2021-04-01] MEDS ORDERED: ALBUTEROL SULFATE HFA 90 MCG/PUFF 8 GM INHALER IH ONE (18:00)
[2021-04-01 18:26] VITALS: BP 110/75
== END 2021-04-01 18:31 | disposition home or self-care (01) ==
LOC: EMS 13:31
DX: J44.1 Chronic obstructive pulmonary disease with (acute) exacerbation (principal); F17.210 Nicotine dependence, cigarettes, uncomplicated; Z20.822 Contact with and (suspected) exposure to COVID-19; Z59.00 Homelessness unspecified
CPT/HCPCS: 36415; 71045; 80053; 83880; 84484; 85025; 85610; 85730; 87426; 93005; 94640; 96365; 96375; 99285; J0456; J2930; J3535; J7611